=== PATIENT | male | born 1960 | race Native Hawaiian/Other Pacific Islander ===

== ENCOUNTER 2018-06-04 05:01 | Emergency (ER) | payer BC, OTHER ==
[~2018-06-04] VITALS: Ht 167.6 cm; Wt 77.1 kg
[~2018-06-04 05:01] MED LIST: AMIO200T4 PO; ASPI-1169 PO; DIGO125T PO; ENOX80DI SQ; LISI10TA5 PO; METO25TA20 PO; PRAV40TA3 PO; WARF-68 PO; WARF3TAB59 PO
[2018-06-04 05:04] VITALS: BP 161/101
== END 2018-06-04 06:29 | disposition home or self-care (01) ==
LOC: ER 05:08
DX: L03.116 Cellulitis of left lower limb (principal); I10 Essential (primary) hypertension; I25.2 Old myocardial infarction; F10.10 Alcohol abuse, uncomplicated; Y90.9 Presence of alcohol in blood, level not specified; Z90.89 Acquired absence of other organs; Z79.82 Long term (current) use of aspirin
CPT/HCPCS: 73630; 99283; A4606